=== PATIENT | female | born 1955 | race Asian ===

== ENCOUNTER → 2022-04-16 | Outpatient (CLI) | payer MEDICARE | END | disposition home or self-care (01) | LOC: RADMN 14:17 | PROVIDERS: ATTEND Internal Medicine | DX: M47.816 Spondylosis without myelopathy or radiculopathy, lumbar region (principal); M48.061 Spinal stenosis, lumbar region without neurogenic claudication; M54.50 Low back pain, unspecified | CPT/HCPCS: 72072; 72100 ==